=== PATIENT | male | born 1955 | race Caucasian/White ===

== ENCOUNTER 2018-03-20 16:37 | Emergency (ER) | payer OTHER ==
[~2018-03-20] VITALS: Ht 182.9 cm; Wt 133.4 kg
[~2018-03-20 16:37] MED LIST: ASPI325 PO; CLON.1 PO; CLOP75 PO; EFFEXOR PO; FLUO20 PO; GLIM2 PO; GLIM4 PO; HYDACE5 PO; INSDET100 SC; LAMICTAL PO; LEVSOD88 PO; Lithium Carbon600 MG PO; METF500 PO; METO100ER PO; METOPROLOL PO; OMEP20ER PO; SITA50T2 PO; SPIHYD PO; VALS80 PO
[2018-03-20 17:19] LABS: BASOPHILS ABSOLUTE AUTO 0.06 K/mm3 (0.00-0.23); BASOPHILS PERCENT AUTO 1 % (0-2); EOSINOPHILS ABSOLUTE AUTO 0.14 K/mm3 (0.00-0.68); EOSINOPHILS PERCENT AUTO 2 % (0-6); Hematocrit 49.1 % (37.0-53.0); Hemoglobin 16.6 g/dL (13.5-17.5); IMMATURE GRAN ABSOLUTE AUTO 0.05 K/mm3 (0.00-0.10); IMMATURE GRAN PERCENT AUTO 1 % (0-1); LYMPHOCYTES PERCENT AUTO 37 % (21-46); MONOCYTES ABSOLUTE AUTO 0.63 K/mm3 (0.16-1.47); MONOCYTES PERCENT AUTO 8 % (4-13); Mean Corpuscular HGB 31.9 pg (26.0-34.0); Mean Corpuscular HGB Conc 33.8 g/dL (31.5-36.5); Mean Corpuscular Volume 94 fL (80-100); Mean Platelet Volume 10.1 fL (9.1-12.4); NEUTROPHILS ABSOLUTE AUTO 4.19 K/mm3 (1.96-9.15); NEUTROPHILS PERCENT AUTO 52 % (41-73); Platelet Count 158 K/mm3 (150-400); RDW Coefficient Variation 13.4 % (11.7-14.2); RDW Standard Deviation 46.3 fL (35.1-46.3); Red Blood Cell Count 5.21 M/mm3 (4.30-5.90); White Blood Cell Count 8.07 K/mm3 (4.00-11.30)
[2018-03-20] MEDS ORDERED: CARV6.25 PO ×2 (17:20→17:26)
[2018-03-20] MEDS ORDERED: Omeprazole20 M1 PO ×2 (17:23→17:27)
[2018-03-20] MEDS ORDERED: GLIM4 PO (17:25)
[2018-03-20] MEDS ORDERED: LEVSOD100 PO (17:27)
[2018-03-20] MEDS ORDERED: FURO40 PO (17:28)
[2018-03-20 17:29] LABS: Alanine Aminotransfer (ALT/SGP 30 U/L (12-78); Albumin, Blood 4.2 g/dL (3.4-5.0); Albumin/Globulin Ratio 1.2 (0.8-1.8); Alk Phos 109 U/L (50-136); Anion Gap 7 mmol/L (6-16); Aspartate Aminotrans (AST/SGOT 20 U/L (12-37); Bilirubin, Total 0.5 mg/dL (0.1-1.0); Blood Urea Nitrogen 13 mg/dL (8-24); Bun/Creatinine Ratio 14.3 (12.0-20.0); CO2, Blood 27 mmol/L (21-32); Calcium, Blood 9.6 mg/dL (8.5-10.1); Chloride, Blood 105 mmol/L (98-108); Creatinine, Blood 0.91 mg/dL (0.60-1.20); Globulin, Blood 3.6 g/dL (2.2-4.0); Glomerular Filtration Rate >60 (60-); Glucose, Blood 139 mg/dL (70-99); Potassium, Blood 3.8 mmol/L (3.5-5.5); Sodium, Blood 139 mmol/L (136-145); Total Protein, Blood 7.8 g/dL (6.4-8.2); Troponin I 0.022 ng/mL (0.000-0.040)
[2018-03-20] MEDS ORDERED: AMLO5 PO (17:30)
[2018-03-20] MEDS ORDERED: CLON.2 PO (17:31)
[2018-03-20] MEDS ORDERED: LOSA25 PO (17:31)
[2018-03-20] MEDS ORDERED: ATOR10 PO ×2 (17:32→17:35)
[2018-03-20] MEDS ORDERED: INSDET100 SC (17:32)
[2018-03-20] MEDS ORDERED: ALBU90OI61 INH (17:34)
[2018-03-20] MEDS ORDERED: Depo-Testo100 MG/1 M IM (17:34)
[2018-03-20] MEDS ORDERED: GEMF600 PO (17:35)
[2018-03-20] MEDS ORDERED: TIOT18 INH (20:35)
[2018-03-20] MEDS ORDERED: (None)20 M1 PO (20:35)
== END 2018-03-20 20:54 | disposition home or self-care (01) ==
LOC: ER 16:37
PROVIDERS: Physician Assistant
DX: J44.1 Chronic obstructive pulmonary disease with (acute) exacerbation (principal); E11.9 Type 2 diabetes mellitus without complications; I25.10 Atherosclerotic heart disease of native coronary artery without angina pectoris; F32.9 Major depressive disorder, single episode, unspecified; E03.9 Hypothyroidism, unspecified; E78.5 Hyperlipidemia, unspecified; K21.9 Gastro-esophageal reflux disease without esophagitis; F17.210 Nicotine dependence, cigarettes, uncomplicated; Z95.5 Presence of coronary angioplasty implant and graft; Z79.899 Other long term (current) drug therapy; Z79.4 Long term (current) use of insulin
CPT/HCPCS: 36415; 71046; 71260; 80053; 83880; 84484; 85025; 93005; 93010; 94640; 96361; 96374; 99285-25; J2930; J7120; Q9967